=== PATIENT | male | born 1965 | race Caucasian/White ===

== ENCOUNTER → 2018-10-16 | Emergency (ER) | payer OTHER ==
[~2018-10-16] VITALS: Ht 188 cm; Wt 125.0 kg
[~2018-10-16] MED LIST: AMOX-580 PO; HYDR-4383 PO; HYDROcodone/acetaminophen 10/325mg tab PO ONE; amox tr/potassium clavulanate 875/125mg TAB PO ONE; naproxen 500mg tablet PO ONE
[2018-10-16 04:51] VITALS: BP 173/124
== END | disposition home or self-care (01) ==
LOC: ER 04:49 → EEVIPCON 04:49
DX: K02.9 Dental caries, unspecified (principal); K04.7 Periapical abscess without sinus; L03.211 Cellulitis of face; Z90.49 Acquired absence of other specified parts of digestive tract; Z98.0 Intestinal bypass and anastomosis status; Z79.2 Long term (current) use of antibiotics; Z79.899 Other long term (current) drug therapy
CPT/HCPCS: 99284